=== PATIENT | male | born 1950 | race Caucasian/White ===

== ENCOUNTER 2021-01-30 07:20 | Emergency (ER) | payer OTHER ==
[~2021-01-30] VITALS: Ht 193 cm; Wt 104.5 kg
[2021-01-30 07:27] VITALS: TEMP 97.8
[2021-01-30] MEDS ORDERED: NAPROSYN500 MG PO (07:51)
[2021-01-30 08:00] VITALS: BP 174/93; PULSE 108
== END 2021-01-30 08:01 | disposition home or self-care (01) ==
LOC: COL.ER 07:20
DX: S62.635A Displaced fracture of distal phalanx of left ring finger, initial encounter for closed fracture (principal); W27.8XXA Contact with other nonpowered hand tool, initial encounter

== ENCOUNTER 2021-01-30 13:18 | Outpatient (RCR) | payer OTHER ==
[~2021-01-30 13:18] MED LIST: NAPROSYN500 MG PO
== END 2021-03-13 14:34 | disposition home or self-care (01) ==
LOC: WSOH 13:18
DX: S62.665A Nondisplaced fracture of distal phalanx of left ring finger, initial encounter for closed fracture (principal); S60.042A Contusion of left ring finger without damage to nail, initial encounter; Y99.0 Civilian activity done for income or pay